=== PATIENT | male | born 1945 | race Caucasian/White ===

== ENCOUNTER 2016-11-23 05:45 | Inpatient (IN) | payer MEDICARE, OTHER ==
--- NOTE | ~2016-11-23 | HP ---
History And Physical [id number] [facility] [place]. [address] NAME: HOANG VARGAS : 47 STATUS : ADM IN [facility]#: [id number] AGE: 71 ADM/REG DATE : 11/23/16 MR#: [id number] REPORT SERV DATE: 11/23/16 DICTATED BY: JF VARGAS DATE: 11/23/16 REPORT STATUS : Draft TRANSCRIBED BY: MODL DATE: 11/23/16 DATE OF ADMISSION: 11/23/2016 CHIEF COMPLAINT: Dyspnea with exertion. This is a direct admission transfer from [facility]. HISTORY OF PRESENT ILLNESS: A 71-year-old white male with a history of coronary artery bypass grafting and aortic valve replacement in 2015 who states that he began having worsening shortness of breath symptoms over the past few days, also a cough that he says has been mildly productive for some occasional yellow sputum. He presented himself to the [facility] Emergency Department yesterday for evaluation, where they initially diagnosed a left pneumonia. He actually received Rocephin antibiotic there at their facility, and he was subsequently transferred here for further management. He relates that he has chronic dyspnea with exertion that has kind of waxing and waning course, some days better than others, that has been going on ever since the surgery. The coronary artery bypass grafting and AVR surgery in 2015. He denies any chest pain. Denies any nausea or vomiting. Denies any abdominal pain. Denies any fevers. Denies any recent changes in any of his medication regimen. He relates that the symptoms of shortness of breath are worse when he is doing something exertional; although the past few days, he has had some mild shortness of breath even at rest. PAST MEDICAL HISTORY: Includes coronary artery disease; BPH; hyperlipidemia; hypothyroidism; diabetes; pulmonary hypertension; peripheral arterial disease; chronic kidney disease, stage III; anxiety and depression; psoriasis; degenerative joint disease; and an apparent right upper lobe nodule found on CT scan on prior admission. SURGICAL HISTORY: Above-described coronary artery bypass graft in 2015 with an aortic valve replacement, Staph infection of the right hand requiring I and D's, and a foot surgery. FAMILY HISTORY: Mother with diabetes and hypertension. Father with leukemia. ALLERGIES: HE HAS NO KNOWN DRUG OR FOOD ALLERGIES. PRIMARY CARE DOCTOR IS JUAN MORALES IN [place]. HE SEES THE WORK STATION SUPPORT SPECIALIST DR. RAMESH AND [facility]SO [facility]. HE DENIES ANY ALCOHOL OR TOBACCO INTAKE; ALTHOUGH, HE HAS SIGNIFICANT EXPOSURE FROM BOTH HIS SON AND IN HOME FOR TOBACCO. REVIEW OF SYSTEMS: Negative except for pertinent as mentioned above in the HPI. PHYSICAL EXAMINATION: VITAL SIGNS: Temperature is 96.9, heart rate 77, blood pressure 175/81, respiratory rate of 18. He is 99% on 2 L nasal cannula. GENERAL: Alert and oriented x3. No focal deficits. He is generally cooperative and awake, in no acute distress for this exam. NECK: No appreciable lymphadenopathy is noted. No significant JVD. History And Physical [address] [address] NAME: HOANG VARGAS : [birth year] STATUS : ADM IN [facility]#: [id number] AGE: 71 ADM/REG DATE : 11/23/16 MR#: [id number] REPORT SERV DATE: 11/23/16 DICTATED BY: JF VARGAS DATE: 11/23/16 REPORT STATUS : Draft TRANSCRIBED BY: LAURO DATE: 11/23/16 LUNGS: He has some mild diminished and rhonchus sounds in the left lower lobe, but otherwise clear to auscultation bilaterally. CARDIOVASCULAR: He is not tachypneic. He has a regular rate and rhythm, that is sinus per EKG. He has a faint systolic murmur auscultated. ABDOMEN: Soft and nontender with active bowel sounds. He has some trace to +1 bilateral lower extremity edema with the right being greater than the left. HEENT: PERRLA is noted. Sclerae are clear. SKIN: Otherwise, skin is warm and dry. LABORATORY DATA: Lab work shows a sodium of 142, potassium 4.3, BUN of 36, creatinine 2.72, glucose of 176. White blood cells 6.2, hemoglobin 10.8, hematocrit 32.7. Troponin of 0.07, but his troponin was 0.[address] [facility]. BNP of 25, lactate of 0.4, albumin of 2.8, and procalcitonin of 0.07. Chest x-ray from [facility] was read as left lower consolidation or effusion. ASSESSMENT: 1. Dyspnea with exertion. 2. Cough, productive. 3. Hypertension. 4. History of coronary artery disease, coronary artery bypass grafting and aortic valve replacement. 5. Chronic kidney disease, stage 3. 6. Hypothyroidism. 7. Diabetes type 2. 8. Lower extremity edema. 9. Chronic anemia. PLAN: We will plan on obtaining a chest x-ray, PA and lateral, to further assess. Check a D dimer. Check urine studies including urinalysis, urine strep, urine Legionella, urine sodium, urine creatinine. We will start him on Levaquin antibiotic for now. We will obtain a sputum culture. Other lab work to include TSH and hemoglobin A1c. We will trend troponins x2 every eight hours, and we will give him reasonable pain and nausea control. We will obtain an ultrasound of the lower extremities to rule out DVT, use p.r.n. blood pressure medicine, and obtain home medication list, that is accurate. We will continue to wean his O2 as tolerated and utilize DuoNeb breathing treatments as well. I have updated the patient at bedside. He is in agreement with this plan going forward. FABIAN/LAURO Jf Vargas NP / [id number] History And Physical [address] [address] NAME: HOANG VARGAS : 47 STATUS : ADM IN [facility]#: [id number] AGE: 71 ADM/REG DATE : 11/23/16 MR#: [id number] REPORT SERV DATE: 11/23/16 DICTATED BY: JF VARGAS DATE: 11/23/16 REPORT STATUS : Draft TRANSCRIBED BY: LAURO DATE: 11/23/16 CC: Tamie Zarate M.D.
--- NOTE | ~2016-11-23 | DS ---
Discharge Summary [facility] [address] [facility]. [address] NAME: HOANG VARGAS : 47 STATUS : DIS IN PAT#: [id number] AGE: 71 ADM/REG DATE : 11/23/16 MR#: [id number] REPORT SERV DATE: 11/26/16 DICTATED BY: JF VARGAS DATE: 11/25/16 REPORT STATUS : Draft TRANSCRIBED BY: MODL DATE: 11/25/16 ADMISSION DATE: 11/23/2016 DISCHARGE DATE: 11/25/2016 DISCHARGE DIAGNOSES: 1. Acute systolic heart failure in the setting of aortic regurg. 2. Dyspnea with exertion and cough. 3. Chronic kidney disease, progressing from stage III to stage IV, most recent creatinine 3.06. 4. Hypoxemia. 5. Anemia of chronic disease. 6. Diabetes type 2 with hemoglobin A1c most recently 8.7. 7. Hypertension. 8. Hypothyroidism on Synthroid therapy. Most recent TSH 3.360. 9. History of coronary artery disease, coronary artery bypass grafting, and aortic valve replacement in 2014. DISCHARGE MEDICATIONS: Amlodipine 5 mg daily, aspirin 81 mg daily, Lipitor 80 mg daily, Neurontin 100 mg at bedtime, guaifenesin 600 mg twice a day for 5 more days, Lantus insulin 18 units at bedtime, Humalog 75/25, 45 units twice a day, Synthroid 50 mcg daily, magnesium oxide 400 mg daily, Klor-Con 20 mEq daily, torsemide 20 mg daily prescription was written for this, [place] 10/325 one tab 4 times a day p.r.n. for pain, Valium 10 mg three times a day p.r.n., [place] 2 mg every seven days, Levaquin 750 mg daily for two more days, Lotensin 5 mg daily prescription was written for this. PROCEDURES AND IMAGING DURING THIS ADMISSION: A venous Doppler ultrasound of lower extremities that showed no evidence of DVT. A V/Q scan showing normal perfusion. No evidence of pulmonary embolus. Overnight oximetry test that was a borderline study showing some episodes of desaturation. HISTORY OF PRESENT ILLNESS: This is a 71-year-old, white male, who was a direct admission transfer from [facility] for worsening dyspnea with exertion. Please see my initial H and P on 11/23/2016 as patient was admitted to the Hospitalist Service for further evaluation and treatment. Initial thought and report from Iveth Young was for a pneumonia as well. However, this has been ruled out. HOSPITAL COURSE: The patient was followed up with the initial barrage of lab work testing including a procalcitonin that was within normal limits. A D-dimer that was elevated which prompted him undergoing the V/Q scan which as stated was within normal limits. He was given nebulizer therapy. Initial treatment with antibiotics of Levaquin as further discussion with the patient revealed productive cough and significant tobacco exposure from his family member although he did not smoke, and the venous ultrasound as described above. He was given extra diuresis given the findings of his chest x-ray which made him symptomatically improved and he did have a slight bump in his creatinine level but I have adjusted his overall diuretic from Lasix to torsemide with the hopes this will give him some longer coverage throughout the day and given the fact that his albumin is somewhat low at 2.8. I Discharge Summary [address] [place]. [address] NAME: HOANG VARGAS : 47 STATUS : DIS IN PAT#: [id number] AGE: 71 ADM/REG DATE : 11/23/16 MR#: [id number] REPORT SERV DATE: 11/26/16 DICTATED BY: JF VARGAS DATE: 11/25/16 REPORT STATUS : Draft TRANSCRIBED BY: LAURO DATE: 11/25/16 think this will be preferable diuretic for him going forward. He did improve what was still somewhat hypoxic coming off oxygen and room air saturations with ambulation were 86%. So he will be discharging home with home O2 and he had a borderline overnight oximetry study as well, but given his overall clinical improvement, symptom improvement, the patient was felt safe for discharge home on 11/25/2016. He will be following up with [facility] on 12/12[facility]2015. Followup with his primary care within the next three to five days to have his BMP rechecked to follow up his kidney function and with the above medication regimen. The patient was in agreement with this plan going forward. I have updated the patient and patient's at bedside. Full questions answered. Please note greater than 30 minutes was spent on this discharge for medication teaching, followup planning, and further disposition. FABIAN/MODL Jf Vargas NP / [id number] CC: Maximiliano Rubio
--- NOTE | ~2016-11-23 | PUL ---
[id number] [place]. [address] NAME: HOANG VARGAS : 47 STATUS : ADM IN [facility]#: [id number] AGE: 71 ADM/REG DATE : 11/23/16 MR#: [id number] REPORT SERV DATE: 11/25/16 DICTATED BY: TRINITY YI DATE: 11/24/16 REPORT STATUS : Draft TRANSCRIBED BY: MODL DATE: 11/24/16 PULMONARY FUNCTION TEST PROCEDURE PERFORMED: Overnight oximetry performed on room air. The patient did have an oxygen desaturation that was over three minutes in length, but only spent two and three quarter minutes with an oxygen saturation less than 88%. IMPRESSION: Borderline study. The patient does not meet strict criteria for supplemental oxygen based on not having five minutes of sustained continues hypoxemia, though did have some episodes of desaturation. If clinically indicated, consider a formal sleep study. PARISA/ALURO Trinity Yi M.D. / [id number] CC: Maximiliano Rubio AMIE SIMS
[~2016-11-23 05:45] MED LIST: ACET500CAP PO; ASAB PO; ASABAYER PO; BYDUREON2 MG SQ; CORDARONE PO; CYTO5 PO; GLUCOPHAGE1000 MG PO; HUMALOGMIX SC; HUMALOGPEN SC; KLOR-CON M2020 MEQ PO; L40 PO; LANTUS SC; LANTUSCART SC; LEVOTHYROXIN150 MCG PO; LIPITOR80 MG PO; LISINOPRIL40 MG PO; LOP25 PO; LOTE40 PO; MAGOX4 PO; MAX25 PO; NOR50 PO; NORCO1 TAB PO; NORV5 PO; NOVOLOG SC; SYN.05 PO; V5 PO; VALIUM10 MG PO; VICODINTAB PO
[2016-11-23 07:28] LABS: BASOPHILS 0.8 %; BASOPHILS ABSOLUTE 0.05 10/3/uL (0.0-0.16); EOSINOPHILS 8.7 %; EOSINOPHILS ABSOLUTE 0.54 10/3/uL (0.0-0.53); HEMATOCRIT 32.7 % (40.0-51.0); HEMOGLOBIN 10.8 g/dL (13.6-17.8); IMMATURE GRANULOCYTES 0.3 %; IMMATURE GRANULOCYTES ABSOLUTE 0.02 10/3/uL (0.0-0.11); LYMPHOCYTES 24.4 %; LYMPHOCYTES ABSOLUTE 1.52 10/3/uL (0.67-4.30); MEAN CORPUSCULAR HEMOGLOB 28.2 pg (26.0-34.0); MEAN CORPUSCULAR VOLUME 85.4 fL (80-100); MEAN PLATELET VOLUME 10.1 fL (9.2-13.0); MONOCYTES 9.9 %; MONOCYTES ABSOLUTE 0.62 10/3/uL (0.21-1.20); NEUTROPHILS 55.9 %; NEUTROPHILS ABSOLUTE 3.49 10/3/uL (2.02-8.40); PLATELET COUNT 191 10/3/uL (150-400); RBC DISTRIBUTION WIDTH 13.6 % (12.0-16.0); RED CELL COUNT 3.83 10/6/uL (4.7-6.1); WHITE BLOOD CELLS 6.2 10/3/uL (4.5-10.5)
[2016-11-23 07:31] LABS: MANUAL DIFF NO %
[2016-11-23 07:45] LABS: A/G RATIO 0.7 (0.7-1.9); ALBUMIN 2.8 G/DL (3.5-5.0); ALKALINE PHOSPHATASE 85 U/L (45-117); BUN (BLOOD UREA NITROGEN) 36 MG/DL (6-23); CALCIUM, SERUM 8.3 MG/DL (8.5-10.4); CHLORIDE, SERUM 106 MMOL/L (96-112); CO2 (CARBON DIOXIDE) 24 MMOL/L (24-34); CREATININE 2.72 MG/DL (0.70-1.30); GFR AFRICAN AMERICAN 26 ML/MIN (>=60); GFR NON AFRICAN AMERICAN 23 ML/MIN (>=60); GLOBULIN 3.9 G/DL (2.5-4.1); GLUCOSE, SERUM 176 MG/DL (60-99); POTASSIUM, SERUM 4.3 MMOL/L (3.5-5.3); SGOT(AST) 11 U/L (5-40); SGPT(ALT) 10 U/L (5-65); SODIUM, SERUM 142 MMOL/L (135-148); TOTAL BILIRUBIN 0.5 MG/DL (0-1.2); TOTAL PROTEIN 6.7 G/DL (6.0-8.5)
[2016-11-23 07:46] LABS: CALCIUM, SERUM 8.3 MG/DL (8.5-10.4); CHLORIDE, SERUM 107 MMOL/L (96-112); CO2 (CARBON DIOXIDE) 24 MMOL/L (24-34); CREATININE 2.69 MG/DL (0.70-1.30); GFR AFRICAN AMERICAN 27 ML/MIN (>=60); GFR NON AFRICAN AMERICAN 23 ML/MIN (>=60); POTASSIUM, SERUM 4.2 MMOL/L (3.5-5.3); SODIUM, SERUM 141 MMOL/L (135-148)
[2016-11-23 07:50] LABS: BUN (BLOOD UREA NITROGEN) 35 MG/DL (6-23); CPK 66 U/L (0-200); GLUCOSE, SERUM 182 MG/DL (60-99); TROPONIN I 0.07 NG/ML (<0.05)
[2016-11-23 08:19] LABS: PROCALCITONIN 0.07 ng/mL (<0.5)
[2016-11-23 12:13] LABS: ASCORBIC ACID (UR NOT ORDER) NEG (NEG); BILIRUBIN, URINE NEGATIVE (NEG); KETONE, URINE NEGATIVE (NEG); LEUKOCYTE ESTERASE(NOT OR NEG (NEG); WBC (NOT ORDERED) (RFLEX) < 1 (0-5)
[2016-11-23 13:11] LABS: CREATININE, URINE 70.6 MG/DL
[2016-11-23] MEDS ORDERED: EFUDEX CREAM 5%40 GM TOP ×2 (16:13→16:14)
[2016-11-23] MEDS ORDERED: NEUR100 PO (16:15)
[2016-11-24 05:18] LABS: BASOPHILS 0.3 %; BASOPHILS ABSOLUTE 0.02 10/3/uL (0.0-0.16); EOSINOPHILS 4.1 %; EOSINOPHILS ABSOLUTE 0.28 10/3/uL (0.0-0.53); HEMATOCRIT 31.4 % (40.0-51.0); HEMOGLOBIN 10.4 g/dL (13.6-17.8); IMMATURE GRANULOCYTES 0.4 %; IMMATURE GRANULOCYTES ABSOLUTE 0.03 10/3/uL (0.0-0.11); LYMPHOCYTES 15.1 %; LYMPHOCYTES ABSOLUTE 1.02 10/3/uL (0.67-4.30); MEAN CORPUS HGB CONC 33.1 g/dL (32.0-36.0); MEAN CORPUSCULAR HEMOGLOB 28.7 pg (26.0-34.0); MEAN CORPUSCULAR VOLUME 86.5 fL (80-100); MEAN PLATELET VOLUME 10.3 fL (9.2-13.0); MONOCYTES 10.5 %; MONOCYTES ABSOLUTE 0.71 10/3/uL (0.21-1.20); NEUTROPHILS 69.6 %; PLATELET COUNT 204 10/3/uL (150-400); RBC DISTRIBUTION WIDTH 13.8 % (12.0-16.0); RED CELL COUNT 3.63 10/6/uL (4.7-6.1); WHITE BLOOD CELLS 6.8 10/3/uL (4.5-10.5)
[2016-11-24 05:25] LABS: BUN (BLOOD UREA NITROGEN) 39 MG/DL (6-23); CALCIUM, SERUM 8.5 MG/DL (8.5-10.4); CHLORIDE, SERUM 102 MMOL/L (96-112); CO2 (CARBON DIOXIDE) 25 MMOL/L (24-34); CREATININE 2.93 MG/DL (0.70-1.30); GFR AFRICAN AMERICAN 24 ML/MIN (>=60); GFR NON AFRICAN AMERICAN 21 ML/MIN (>=60); GLUCOSE, SERUM 274 MG/DL (60-99); MANUAL DIFF NO %; POTASSIUM, SERUM 4.6 MMOL/L (3.5-5.3); SODIUM, SERUM 138 MMOL/L (135-148)
[2016-11-25 06:02] LABS: BUN (BLOOD UREA NITROGEN) 41 MG/DL (6-23); CALCIUM, SERUM 9.2 MG/DL (8.5-10.4); CHLORIDE, SERUM 105 MMOL/L (96-112); CO2 (CARBON DIOXIDE) 23 MMOL/L (24-34); CREATININE 3.06 MG/DL (0.70-1.30); GFR AFRICAN AMERICAN 23 ML/MIN (>=60); GFR NON AFRICAN AMERICAN 20 ML/MIN (>=60); SODIUM, SERUM 138 MMOL/L (135-148)
[2016-11-25 06:04] LABS: GLUCOSE, SERUM 129 MG/DL (60-99)
[2016-11-25] MEDS ORDERED: MUCINEX600 MG PO (11:09)
[2016-11-25] MEDS ORDERED: DEMA20 PO (11:10)
[2016-11-25] MEDS ORDERED: LEVAQUIN750 MG PO (11:12)
[2016-11-25] MEDS ORDERED: LOTE5 PO (11:13)
[2017-04-11] MEDS ORDERED: LIPITOR80 MG PO (14:05)
[2017-04-11] MEDS ORDERED: DEMA20 PO (14:05)
[2017-04-11] MEDS ORDERED: LOTE5 PO (14:05)
[2017-04-11] MEDS ORDERED: NEUR100 PO (14:05)
[2017-04-11] MEDS ORDERED: KLOR-CON M2020 MEQ PO (14:05)
[2017-04-11] MEDS ORDERED: LEVOTHYROXIN50 MCG PO (14:05)
[2017-04-11] MEDS ORDERED: LANTUS SC (14:06)
[2017-04-11] MEDS ORDERED: BYDUREON2 MG SQ (14:06)
[2017-04-11] MEDS ORDERED: V5 PO (14:07)
[2017-04-11] MEDS ORDERED: NORCO1 TAB PO (14:07)
[2017-04-11] MEDS ORDERED: NOVOLOG 75/25 SC (14:09)
[2017-04-11] MEDS ORDERED: HALF81 PO (14:11)
[2017-04-15] MEDS ORDERED: COREG6 PO (10:37)
[2017-04-15] MEDS ORDERED: NORV10 PO (10:37)
[2017-04-15] MEDS ORDERED: CEFT5 PO (10:38)
== END 2016-11-25 11:40 | disposition home or self-care (01) | DRG 291 ==
LOC: 5NO 05:45
PROVIDERS: Hospitalist; Internal Medicine; Nurse Practitioner Family
DX: I13.0 Hypertensive heart and chronic kidney disease with heart failure and stage 1 through stage 4 chronic kidney disease, or unspecified chronic kidney disease (principal); I50.21 Acute systolic (congestive) heart failure; E11.22 Type 2 diabetes mellitus with diabetic chronic kidney disease; N18.3 Chronic kidney disease, stage 3 (moderate); I25.10 Atherosclerotic heart disease of native coronary artery without angina pectoris; Z95.1 Presence of aortocoronary bypass graft; Z95.2 Presence of prosthetic heart valve; E03.9 Hypothyroidism, unspecified; D63.1 Anemia in chronic kidney disease
CPT/HCPCS: 71010; 71020; 78582; 80048; 80053; 81001; 82550; 82553; 82570; 82962; 83036; 83605; 83935; 84145; 84300; 84439; 84443; 84484; 85025; 85379; 87070; 87205; 87449; 93005; 93970; 94640; 94762; A9270-GY; A9540; A9567; J1956